=== PATIENT | female | born 1980 | race Native Hawaiian/Other Pacific Islander ===

== ENCOUNTER 2021-03-02 05:40 | Inpatient (IN) | payer OTHER ==
[2021-03-02] MEDS ORDERED: miSOPROStol 200 MCG TAB ONE (06:36)
--- NOTE | 2021-03-02 06:43 | History and Physical Report ---
History of Present Illness Date of examination: 03/02/21 Date of admission: 03/02/21 05:40 Chief complaint: painful contraction and pushing in the chair and LOF on the way to the hospital History of present illness: at 40.5wks by EDC 02/25/21 per pt report. care with [facility] and charge nurse states it was a Life cycle patient and the pt is complete and pushing. Pt admits to movement and LOF on her way to the hospital and feeling ctx. Pt admits to headache since during labor. Denies vaginal bleeding. Past History Past Medical History: no pertinent history Past Surgical History: no surgical history Family/Genetic History: none Social history: no significant social history - Obstetrical History Expected Date of Delivery: 02/25/21 Actual Gestation: 40 Week(s) 5 Day(s) : 1 Number of Living Children: 1 Medications and Allergies Allergies Allergy/AdvReac Type Severity Reaction Status Date / Time No Known Allergies Allergy Verified 08/22/14 08:46 Home Medications Medication Instructions Recorded Confirmed Last Taken Type No Known Home Medications [No 08/22/14 08/22/14 Unknown History Reported Home Medications] Active Meds: Active Medications Ephedrine Sulfate (Ephedrine Sulfate 50 Mg/1 Ml Inj) 10 mg IV Q2M PRN PRN Reason: Hypotension Lactated Ringer's (Lactated Ringers) 1,000 mls @ 125 mls/hr IV DIRECT SHABNAM Oxytocin/Sodium Chloride (Pitocin/Ns 30 Unit/500ml) 30 units in 500 mls @ 40 mls/hr IV TITR SHABNAM; Protocol Cefazolin Sodium 2 gm/ Sodium (Chloride) 100 mls @ 200 mls/hr IV ONCE ONE; Protocol Stop: 03/02/21 06:56 Lidocaine (Lidocaine (2%) 20 Mg/1 Ml Vial 20 Ml Mdv) 20 ml INFILTRATI ONCE ONE Stop: 03/02/21 06:28 Mineral Oil (Mineral Oil 30 Ml Oral Liqd) 30 ml PO QHS PRN PRN Reason: Constipation Review of Systems All systems: negative (LOF and ctx) - Vital Signs Vital signs: Vital Signs Pulse BP 98 H 129/67 03/02/21 05:52 03/02/21 05:52 Temp Pulse Resp BP Pulse Ox 87 127/71 03/02/21 06:22 03/02/21 06:22 - Physical Exam Breasts: Positive: deferred Cardiovascular: Regular rate Lungs: Positive: Normal air movement Genitourinary (Female): Positive: normal external genitalia Vulva: both: normal - Obstetrical FHR: other (Intermittent FHR, no continous strip with pt pushing) Uterine Contraction Monitor Mode: Palpation Cervical Dilatation: 10 Cervical Effacement Percentage: 100 station: 0 station Uterine Contraction Pattern: Regular Results All other labs normal. Assessment and Plan Post term in active labor with very thick meconium stained fluid and patient pushing 1. Admit to labor and delivery 2. Obtain records from the electrical tryout person [facility]. Precipitous vag delivery. Please see the note Nurse to bedside did translation as pt pushed.
[2021-03-02 06:59] LABS: Hematocrit 40.4 % (30.3-42.9); Hemoglobin 13.3 gm/dl (10.1-14.3); Mean Corpuscular HGB Conc 33 % (30-34); Mean Corpuscular Volume 95 fl (79-97); Platelet Count 323 K/mm3 (140-440); Red Blood Count 4.26 M/mm3 (3.65-5.03); Red Cell Distribution Width 14.4 % (13.2-15.2)
--- NOTE | 2021-03-02 07:11 | Procedure Note ---
OB Delivery Note - Delivery Date of Delivery: 03/02/21 Surgeon: KAYLA HERNANDEZ Estimated blood loss: other (350cc) - Vaginal Delivery presentation: vertex Delivery position: OA Intrapartum events: meconium, precipitous labor- <3hr, shoulder dystocia (relieved with Susannah and suprapubic pressure) Delivery induction: none Delivery monitor: external FHT Route of delivery: Delivery placenta: spontaneous (calcified, meconium stained and large placenta) Delivery laceration: 1st degree (mid-periurethral laceration) Delivery repair: chromic Anesthesia: local (lidocaine 2%) Delivery comments: Nurse called me and pt screaming and pushing in wheelchair. Precipitous SAVD with shoulder dystocia relieved in Susannah position and suprapubic pressure by nurse. Viable female delivered doing well and moving both arms equally. Baby taken to NICU after records obtained and showed GBS positive and pt did not get any treatment. IV access placed in between contractions by nurse. Spontaneous delivery of intact placenta with 3vessel cord. Mid-periurethral laceration repaired using 2-0 chromic in a running locked fashion with excellent hemostasis. Local anesthetic lidocaine used with good effect. Cervical visually inspected with ring forceps and no lacerations seen. Cytotec given 800mcg per rectum with EBL 350cc and overdistended uterus with large baby. Anc ef x1 dose to be given with contaminated from maternal stool to periurethral laceration. Pt stable. Sponge and needle counts correct x2 - Infant A at 1 minute: 8 at 5 minutes: 9 Gender: Female (Thick large amount of meconium stained fluid; wt 4000g.)
[2021-03-02 07:12] LABS: Amphetamine Screen,Urine Negative; Benzodiazepines Screen,Urine Negative; Cannabinoid Screen,Urine Negative; Cocaine Screen,Urine Negative; Methadone Screen,Urine Negative; Opiate Screen,Urine Negative
[2021-03-02 07:13] LABS: Bilirubin,Urine NEG (Negative); Blood,Urine NEG (Negative); Color,Urine Amber (Yellow); Mucus,Urine 3+ /HPF; Urobilinogen,Urine < 2.0 mg/dL (<2.0)
[2021-03-02 07:15] LABS: Alanine Aminotransferase 10 units/L (7-56); Albumin 3.6 g/dL (3.9-5); Blood Urea Nitrogen 13 mg/dL (7-17); Calcium 8.9 mg/dL (8.4-10.2); Hemolysis Index 12
[2021-03-02 07:19] LABS: BUN/Creatinine Ratio 26
[2021-03-02] MEDS ORDERED: diphenhydrAMINE 25 MG CAP PO PRN (07:30)
[2021-03-02] MEDS ORDERED: WITCH HAZEL/ GLYCERIN PAD TP PRN (07:30)
[2021-03-02] MEDS: IBUPROFEN 600 MG TAB PO SCH ×4 (07:42→23:10)
[2021-03-02] MEDS ORDERED: ePHEDrine SULFATE 50 MG/1 ML INJ IV PRN (08:00)
[2021-03-02] MEDS ORDERED: PROMETHAZINE 25 MG RECT SUPP PR PRN (08:00)
[2021-03-02] MEDS ORDERED: MINERAL OIL 30 ML ORAL LIQD PO PRN (08:00)
[2021-03-02] MEDS ORDERED: OXYTOCIN DRIP 30 UNITS/500 ML BAG IV SCH (08:00)
[2021-03-02] MEDS ORDERED: LIDOCAINE (2%) 20 MG/1 ML VIAL 20 ML MDV INFILTRATI SCH (08:00)
[2021-03-02] MEDS ORDERED: LANOLIN/ZINC/DIMETHICONE (LANSINOH) 7 GM TP PRN (08:00)
[2021-03-02] MEDS ORDERED: miSOPROStol 200 MCG TAB PR SCH (08:00)
[2021-03-02] MEDS ORDERED: ONDANSETRON 4 MG/2 ML INJ IV PRN (08:00)
[2021-03-02] MEDS ORDERED: PROMETHAZINE 25 MG TAB PO PRN (08:00)
[2021-03-02] MEDS ORDERED: oxyCODONE /ACETAMINOPHEN 5-325MG TAB PO PRN (08:00)
[2021-03-02] MEDS ORDERED: ACETAMINOPHEN 325 MG TAB PO PRN (09:00)
[2021-03-02] MEDS: LACTATED RINGERS 1,000 ML IV SCH (10:50)
[2021-03-02] MEDS: GENTAMICIN IV SCH (11:07)
[2021-03-02] MEDS: SODIUM CHLORIDE 0.9% IV SCH (11:07)
[2021-03-02] MEDS: AMPICILLIN/NS 2 GM/100 ML 2 GM/100 ML BAG IV SCH ×2 (11:47→18:43)
[2021-03-02] MEDS: PRENATAL VIT27-FE FUMARATE-FOLIC ACID VIT TAB PO SCH (15:36)
[2021-03-02] MEDS ORDERED: MAGNESIUM HYDROXIDE (MOM) ORAL LIQD UDC PO PRN (22:00)
[2021-03-03] MEDS: AMPICILLIN/NS 2 GM/100 ML 2 GM/100 ML BAG IV SCH ×3 (00:06→12:07)
[2021-03-03] MEDS: IBUPROFEN 600 MG TAB PO SCH ×3 (00:07→11:24)
[2021-03-03] MEDS: SODIUM CHLORIDE 0.9% IV SCH (10:40)
[2021-03-03] MEDS: LACTATED RINGERS 1,000 ML IV SCH (10:40)
[2021-03-03] MEDS: GENTAMICIN IV SCH (10:40)
[2021-03-03] MEDS: PRENATAL VIT27-FE FUMARATE-FOLIC ACID VIT TAB PO SCH (10:40)
--- NOTE | 2021-03-03 11:50 | Progress Note ---
Assessment and Plan A: Day 1 Stable P: Follow routine orders Depo 150mg IM x 1 dose Discharge in the a.m. Subjective - Subjective Date of service: 03/03/21 Principal diagnosis: s/p Precipitious Vaginal Delivery; Day 1 Patient reports: appetite normal, voiding normally, pain well controlled, bowel movement, ambulating normally : in NICU (due to GBS+ and no treatment during labor) Objective - Vital Signs Latest vital signs: Vital Signs Temp Pulse Resp BP BP Pulse Ox 03/03/21 07:58 98.2 F 76 18 108/65 95 03/03/21 01:07 18 03/03/21 00:47 98.7 F 76 18 110/57 95 03/03/21 00:07 18 03/02/21 23:10 18 03/02/21 22:59 18 03/02/21 21:59 18 03/02/21 16:25 98.2 F 78 18 136/66 96 03/02/21 12:15 98.5 F 75 18 105/61 98 Intake and Output 03/02/21 03/03/21 03/03/21 22:59 06:59 14:59 Intake Total 1340 460 360 Output Total 700 700 300 Balance 640 -240 60 Intake: IV 1100 100 AMPICILLIN/NS 2 GM/100 ML 100 100 2 gm In 100 ml @ 100 mls /hr IV Q6H SHABNAM Rx#: [id number] Lactated Ringers 1,000 ml 1000 @ 125 mls/hr IV DIRECT SHABNAM Rx#:[id number] Oral 240 360 120 Intake, Free Water 240 Output: Urine 700 700 300 Void 700 700 300 Other: Total, Intake Amount 240 120 120 Total, Output Amount 400 400 300 # Voids Void 1 - Exam Breasts: Present: normal Cardiovascular: Present: Regular rate, Normal S1, Normal S2 Lungs: Present: Clear to auscultation, Normal air movement Abdomen: Present: normal appearance, soft, normal bowel sounds Uterus: Present: normal, firm, fundal height below umbilicus Extremities: Present: normal
[2021-03-03] MEDS ORDERED: medroxyPROGESTERone ACETATE 150 MG/ML SYRINGE IM NR (11:56)
--- NOTE | 2021-03-03 12:04 | Discharge Summary ---
Providers - Providers Date of Admission: 03/02/21 05:40 Date of discharge: 03/04/21 Attending physician: KAYLA HERNANDEZ Primary care physician: KAYLA HERNANDEZ Hospitalization Reason for admission: active labor Delivery: Episiotomy: none Laceration: other (berry-urethral ) Other procedures: none complications: none Discharge diagnosis: IUP at term delivered baby: female Condition at discharge: Good Disposition: DC-01 TO HOME OR SELFCARE Plan - Provider Discharge Summary Activity: routine, no sex for 6 weeks, no heavy lifting 4 weeks, no strenuous exercise Diet: routine Instructions: routine Additional instructions: [] Smoking cessation referral if applicable(refer to patient education folder for contact #) [] Refer to [facility] Booklet Call your doctor immediately for: * Fever > 100.5 * Heavy vaginal bleeding ( >1 pad per hour) * Severe persistent headache * Shortness of breath * Reddened, hot, painful area to leg or breast * Drainage or odor from incision. * Keep incision clean and dry at all times and follow doctor's instructions regarding bathing/showering - Follow up plan Follow up: KAYLA HERNANDEZ MD [Primary Care Provider] - 6 Weeks
[2021-03-03 13:56] LABS: Hemoglobin 11.7 gm/dl (10.1-14.3)
[2021-03-03 14:09] VITALS: BP 114/77
== END 2021-03-03 14:55 | disposition home or self-care (01) | DRG 807 ==
LOC: LD 05:40 → OB 10:03
PROVIDERS: ADMIT Obstetrics & Gynecology; ATTEND Obstetrics & Gynecology
PROC: 10E0XZZ Delivery of Products of Conception, External Approach (ICD-10-PCS; principal; 2021-03-02)
PROC: 0UQMXZZ Repair Vulva, External Approach (ICD-10-PCS; 2021-03-02)
DX: O48.0 Post-term pregnancy (principal); Z37.0 Single live birth; Z3A.40 40 weeks gestation of pregnancy; O77.0 Labor and delivery complicated by meconium in amniotic fluid; O62.3 Precipitate labor; O66.0 Obstructed labor due to shoulder dystocia; O71.82 Other specified trauma to perineum and vulva; Z20.822 Contact with and (suspected) exposure to COVID-19
CPT/HCPCS: 36415; 59025; 80053; 80307; 81001; 85014; 85018; 85027; 86850; 86900; 86901; G0378; J0290; J0690; J1580; J2590; J7120; U0003

== ENCOUNTER 2022-02-26 06:11 | Inpatient (IN) | payer OTHER ==
[2022-02-26] MEDS ORDERED: OXYTOCIN 10 UNIT/1 ML INJ ONE (06:57)
[2022-02-26] MEDS ORDERED: LACTATED RINGERS 1,000 ML ONE (07:04)
[2022-02-26] MEDS ORDERED: OXYTOCIN DRIP 30,000 MILLIUNITS/500 ML BAG IV ONE ×2 (07:05→07:25)
[2022-02-26] MEDS ORDERED: METHYLERGONOVINE MALEATE 0.2 MG/ML VIAL IM ONE (07:10)
[2022-02-26] MEDS ORDERED: MINERAL OIL 30 ML ORAL LIQD PO PRN (07:31)
[2022-02-26] MEDS ORDERED: ACETAMINOPHEN 325 MG TAB PO PRN ×2 (07:31→07:36)
[2022-02-26] MEDS ORDERED: fentaNYL 100 MCG/2 ML INJ IV PRN (07:31)
[2022-02-26] MEDS ORDERED: ePHEDrine SULFATE 50 MG/1 ML INJ IV PRN (07:31)
[2022-02-26] MEDS ORDERED: TERBUTALINE 1 MG/1 ML INJ SUB-Q PRN (07:31)
[2022-02-26] MEDS ORDERED: BUTORPHANOL 2 MG/1 ML INJ IV PRN ×2 (07:31)
[2022-02-26] MEDS ORDERED: CARBOPROST TROMETHAMINE 250 MCG/1 ML INJ IM PRN (07:31)
[2022-02-26] MEDS ORDERED: NalbUPHINE 10 MG/1 ML INJ IV PRN (07:31)
[2022-02-26] MEDS ORDERED: LOPERAMIDE 2 MG CAP PO PRN (07:31)
[2022-02-26] MEDS ORDERED: miSOPROStol 200 MCG TAB PR PRN (07:31)
[2022-02-26] MEDS ORDERED: OXYTOCIN 10 UNIT/1 ML INJ IM PRN (07:31)
[2022-02-26] MEDS ORDERED: METHYLERGONOVINE MALEATE 0.2 MG/ML VIAL IM PRN (07:31)
[2022-02-26] MEDS ORDERED: LIDOCAINE (2%) 20 MG/1 ML VIAL 20 ML MDV INFILTRATI ONE (07:31)
[2022-02-26] MEDS ORDERED: oxyCODONE /ACETAMINOPHEN 5-325MG TAB PO PRN (07:36)
[2022-02-26] MEDS ORDERED: LANOLIN/ZINC/DIMETHICONE (LANSINOH) 7 GM TP PRN (07:36)
[2022-02-26] MEDS ORDERED: HYDROcodone/ACETAMINOPHEN 5-325 MG TAB PO PRN (07:36)
[2022-02-26] MEDS ORDERED: MAGNESIUM HYDROXIDE (MOM) ORAL LIQD UDC PO PRN (07:36)
[2022-02-26] MEDS ORDERED: KETOROLAC 30 MG/1 ML INJ IV PRN (07:36)
[2022-02-26] MEDS ORDERED: ONDANSETRON 4 MG/2 ML INJ IV PRN (07:36)
[2022-02-26] MEDS ORDERED: PROMETHAZINE 25 MG RECT SUPP PR PRN (07:36)
[2022-02-26] MEDS ORDERED: PROMETHAZINE 25 MG TAB PO PRN (07:36)
[2022-02-26] MEDS ORDERED: diphenhydrAMINE 25 MG CAP PO PRN (07:36)
[2022-02-26] MEDS ORDERED: WITCH HAZEL/ GLYCERIN PAD TP PRN (07:36)
--- NOTE | 2022-02-26 07:40 | History and Physical Report ---
History of Present Illness Date of examination: 02/26/22 Date of admission: 02/26/22 06:37 Chief complaint: Active labor with SROM prior to admission History of present illness: [place] Past History - Obstetrical History Expected Date of Delivery: 02/22/22 Actual Gestation: 40 Week(s) 4 Day(s) : 1 Medications and Allergies Allergies Allergy/AdvReac Type Severity Reaction Status Date / Time No Known Allergies Allergy Verified 08/22/14 08:46 Home Medications Medication Instructions Recorded Confirmed Last Taken Type No Known Home Medications [No 08/22/14 02/26/22 Unknown History Reported Home Medications] Active Meds: Active Medications Acetaminophen (Acetaminophen 325 Mg Tab) 650 mg PO Q4H PRN PRN Reason: Pain, Mild (1-3) Butorphanol Tartrate (Butorphanol 2 Mg/1 Ml Inj) 1 mg IV Q2H PRN PRN Reason: Pain, Moderate(4-6) LABOR PAIN Butorphanol Tartrate (Butorphanol 2 Mg/1 Ml Inj) 2 mg IV Q2H PRN PRN Reason: Pain , Severe (7-10) Carboprost Tromethamine (Carboprost Tromethamine 250 Mcg/1 Ml Inj) 250 mcg IM ONCE PRN PRN Reason: Uterine Bleeding Ephedrine Sulfate (Ephedrine Sulfate 50 Mg/1 Ml Inj) 10 mg IV Q2M PRN PRN Reason: Hypotension Fentanyl (Fentanyl 100 Mcg/2 Ml Inj) 100 mcg IV Q2H PRN PRN Reason: Pain,Severe (7-10) LABOR PAIN Oxytocin/Sodium Chloride (Pitocin/Ns 30 Unit/500ml) 30 units in 500 mls @ 2 mls/hr IV TITR SHABNAM; Protocol Lactated Ringer's (Lactated Ringers) 1,000 mls @ 125 mls/hr IV DIRECT SHABNAM Oxytocin/Sodium Chloride (Pitocin/Ns 30 Unit/500ml) 30 units in 500 mls @ 40 mls/hr IV TITR SHABNAM; Protocol Lidocaine (Lidocaine (2%) 20 Mg/1 Ml Vial 20 Ml Mdv) 20 ml INFILTRATI ONCE ONE Stop: 02/26/22 07:32 Loperamide HCl (Loperamide 2 Mg Cap) 2 mg PO ONCE PRN PRN Reason: give with Hemabate Methylergonovine Maleate (Methylergonovine Maleate 0.2 Mg/Ml Vial) 0.2 mg IM ONCE PRN PRN Reason: Uterine Bleeding Mineral Oil (Mineral Oil 30 Ml Oral Liqd) 30 ml PO QHS PRN PRN Reason: Constipation Misoprostol (Misoprostol 200 Mcg Tab) 800 mcg SC ONCE PRN PRN Reason: Uterine Bleeding Nalbuphine HCl (Nalbuphine 10 Mg/1 Ml Inj) 10 mg IV Q2H PRN PRN Reason: Pain, Moderate (4-6) Oxytocin (Oxytocin 10 Unit/1 Ml Inj) 10 unit IM ONCE PRN PRN Reason: Uterine Bleeding Terbutaline Sulfate (Terbutaline 1 Mg/1 Ml Inj) 0.25 mg SUB-Q ONCE PRN PRN Reason: Hyperstimulation/Hypertonicity Review of Systems All systems: negative (Contractions and leaking fluid) - Vital Signs Vital signs: Vital Signs Pulse Pulse Ox 101 H 99 02/26/22 06:45 02/26/22 06:45 Temp Pulse Resp BP Pulse Ox 98.7 F 77 18 127/81 98 02/26/22 07:22 02/26/22 07:32 02/26/22 07:22 02/26/22 07:30 02/26/22 07:32 - Physical Exam Breasts: Positive: deferred Cardiovascular: Regular rate Lungs: Positive: Clear to auscultation Abdomen: Positive: normal appearance, normal bowel sounds Genitourinary (Female): Positive: normal external genitalia, normal perenium Vulva: both: normal Vagina: Positive: normal moisture Cervix: Positive: other (8 cm) Uterus: Positive: enlarged (Gravid) Anus/Rectum: Positive: normal perianal skin Extremities: Positive: normal Deep Tendon Reflex Grade: Normal +2 - Obstetrical FHR: category 1 Cervical Dilatation: 8 Cervical Effacement Percentage: 100 station: -2 Uterine Contraction Pattern: Regular Results Result Diagrams: 02/26/22 07:00 All other labs normal. Assessment and Plan admission GBS pos expect imminent delivery CFM Maternal/ well being reassuring Anjali Kenny MD
--- NOTE | 2022-02-26 07:42 | Procedure Note ---
OB Delivery Note - Delivery Date of Delivery: 02/26/22 Surgeon: CAMELIA SIERRA Estimated blood loss: 200cc - Vaginal Delivery position: OA Intrapartum events: meconium, precipitous labor- <3hr Delivery induction: none Delivery augmentation: pitocin Delivery monitor: external FHT, external uterine Route of delivery: Delivery placenta: spontaneous Delivery cord: 3 umbilical vessels Episiotomy: none Delivery laceration: none Delivery comments: Patient pushed to deliver a viable female over an intact perineum with weight 3930gms and 8/9. Position LEIGH ANN, no nuchal cord. Spontaneous cry at delivery. Delivery of the anterior shoulder atraumatic, remainder of delivery uncomplicated. Cord clamped cut and baby handed to waiting [facility] team. Spontaneous delivery of an intact placenta with three-vessel cord. Inspection of the perineum cervix and vagina revealed no lacerations. Firm fundus, EBL 200ml. Methergine 0.2 mg IM x1 dose given for atony prophylaxis. All sponge needle and instrument counts correct x2. Mom and baby stable to . No complications. Anjali Sierra MD
[2022-02-26] MEDS ORDERED: LACTATED RINGERS 1,000 ML IV SCH (07:45)
[2022-02-26] MEDS ORDERED: OXYTOCIN DRIP 30 UNITS/500 ML BAG IV SCH ×2 (08:00)
[2022-02-26 08:11] LABS: Hematocrit 34.1 % (30.3-42.9); Hemoglobin 11.4 gm/dl (10.1-14.3); Mean Corpuscular HGB Conc 33 % (30-34); Mean Corpuscular Volume 89 fl (79-97); Platelet Count 320 K/mm3 (140-440); Red Blood Count 3.82 M/mm3 (3.65-5.03); Red Cell Distribution Width 15.3 % (13.2-15.2)
[2022-02-26] MEDS: IBUPROFEN 800 MG TAB PO SCH ×3 (08:47→22:05)
[2022-02-26] MEDS: DOCUSATE SODIUM 100 MG CAP PO SCH ×2 (10:51→22:05)
[2022-02-26] MEDS: PRENATAL VIT27-FE FUMARATE-FOLIC ACID VIT TAB PO SCH (10:51)
[2022-02-26 11:17] LABS: Hepatitis C Virus Antibody Non-Reactive (NonReactive)
[2022-02-26 21:09] LABS: Hematocrit 33.4 % (30.3-42.9)
[2022-02-26] MEDS: SENNOSIDES/DOCUSATE SODIUM 8.6/50 MG TAB PO SCH (22:12)
--- NOTE | 2022-02-27 07:07 | Progress Note ---
Subjective - Subjective Date of service: 02/27/22 Interval history: day #1 without complication Routine course Ambulatory, pain controlled, tolerating general diet with normal bowel bladder habits Baby doing Continue routine course with DC home tomorrow Anjali Kenny MD Patient reports: appetite normal, voiding normally, pain well controlled, ambulating normally : doing well Objective - Vital Signs Latest vital signs: Vital Signs Temp Pulse Resp BP BP Pulse Ox Pulse Ox 02/27/22 01:00 98.0 F 73 20 124/81 98 02/26/22 22:30 98 02/26/22 22:05 18 02/26/22 17:05 98.3 F 73 18 136/81 98 02/26/22 12:40 98.5 F 77 18 121/69 98 02/26/22 09:36 98.4 F 68 20 119/76 97 02/26/22 09:05 97 02/26/22 08:37 68 99 02/26/22 08:32 64 97 02/26/22 08:30 69 127/80 02/26/22 08:27 68 98 02/26/22 08:22 65 98 02/26/22 08:17 71 99 02/26/22 08:15 68 131/80 02/26/22 08:12 69 99 02/26/22 08:07 68 99 02/26/22 08:02 71 99 02/26/22 08:00 68 131/81 02/26/22 07:57 81 97 02/26/22 07:52 78 98 02/26/22 07:47 83 98 02/26/22 07:45 81 130/82 02/26/22 07:42 85 98 02/26/22 07:37 83 98 02/26/22 07:32 77 98 02/26/22 07:30 81 127/81 02/26/22 07:27 81 98 02/26/22 07:22 98.7 F 75 18 120/94 99 02/26/22 07:17 78 98 02/26/22 07:15 93 H 120/94 02/26/22 07:12 87 98 02/26/22 07:07 104 H 99 Intake and Output 02/26/22 02/26/22 02/27/22 15:59 23:59 07:59 Intake Total 240 1080 360 Output Total 100 Balance 140 1080 360 Intake: Oral 240 720 360 Intake, Free Water 360 Output: Urine 100 Void 100 Other: Total, Intake Amount 240 240 120 Total, Output Amount 100 # Voids Void 1 2 1 - Labs Labs: Abnormal lab results 02/26/22 Range/Units 07:00 WBC 12.2 H (4.5-11.0) K/mm3 RDW 15.3 H (13.2-15.2) %
--- NOTE | 2022-02-27 07:09 | Discharge Summary ---
Providers - Providers Date of Admission: 02/26/22 06:37 Date of discharge: 02/28/22 Attending physician: CAMELIA SIERRA MD Primary care physician: CAMELIA SIERRA MD Hospitalization Delivery: Episiotomy: none Laceration: none Discharge diagnosis: IUP at term delivered [place] baby: female Condition at discharge: Stable Disposition: 01 HOME / SELF CARE / HOMELESS - Discharge Diagnoses (1) Status: Resolved Qualifiers: Weeks of gestation: 40 weeks Qualified Code(s): Z3A.40 - 40 weeks gestation of Plan - Provider Discharge Summary Activity: no sex for 6 weeks Diet: routine Instructions: routine Additional instructions: [] Smoking cessation referral if applicable(refer to patient education folder for contact #) [] Refer to [facility] Booklet Call your doctor immediately for: * Fever > 100.5 * Heavy vaginal bleeding ( >1 pad per hour) * Severe persistent headache * Shortness of breath * Reddened, hot, painful area to leg or breast * Drainage or odor from incision. * Keep incision clean and dry at all times and follow doctor's instructions regarding bathing/showering - Follow up plan Follow up: CAMELIA SIERRA MD [Primary Care Provider] - 6 Weeks
[2022-02-27] MEDS: IBUPROFEN 800 MG TAB PO SCH ×2 (11:02→20:00)
[2022-02-27] MEDS: DOCUSATE SODIUM 100 MG CAP PO SCH (11:03)
[2022-02-27] MEDS: PRENATAL VIT27-FE FUMARATE-FOLIC ACID VIT TAB PO SCH (11:04)
[2022-02-27] MEDS ORDERED: MEASLES, MUMPS & RUBELLA 12,500 UNIT/0.5 ML VACCINE SUB-Q ONE (11:30)
[2022-02-27] MEDS: SENNOSIDES/DOCUSATE SODIUM 8.6/50 MG TAB PO SCH (20:00)
[2022-02-28] MEDS: DOCUSATE SODIUM 100 MG CAP PO SCH ×2 (00:16→08:45)
[2022-02-28] MEDS: IBUPROFEN 800 MG TAB PO SCH ×2 (02:00→08:45)
[2022-02-28] MEDS ORDERED: TETANUS,DIPH,PERTUSS(ACELL) VACCINE 0.5 ML SYRINGE IM ONE (06:00)
[2022-02-28 08:30] VITALS: BP 131/84
[2022-02-28] MEDS: PRENATAL VIT27-FE FUMARATE-FOLIC ACID VIT TAB PO SCH (08:44)
[2022-02-28] MEDS ORDERED: FLU VACC QUAD 2021-22(6MOS UP)/PF 60 MCG/0.5 ML SYRINGE IM ONE (12:00)
== END 2022-02-28 11:10 | disposition home or self-care (01) | DRG 807 ==
LOC: TRG 06:11 → APU 06:12 → TRG 06:36 → LD 06:37 → OB 08:55
PROVIDERS: ADMIT Obstetrics & Gynecology; ATTEND Obstetrics & Gynecology
PROC: 10E0XZZ Delivery of Products of Conception, External Approach (ICD-10-PCS; principal; 2022-02-26)
PROC: 3E0234Z Introduction of Serum, Toxoid and Vaccine into Muscle, Percutaneous Approach (ICD-10-PCS; 2022-02-27)
DX: O77.0 Labor and delivery complicated by meconium in amniotic fluid (principal); Z37.0 Single live birth; O99.824 Streptococcus B carrier state complicating childbirth; Z3A.40 40 weeks gestation of pregnancy; Z20.822 Contact with and (suspected) exposure to COVID-19; O62.3 Precipitate labor; Z23 Encounter for immunization
CPT/HCPCS: 36415; 85014; 85018; 85027; 86592; 86706; 86762; 86803; 86850; 86900; 86901; 88307; 90471; 90472; 90707; 90715; G0378; J2210; J2590; U0003